=== PATIENT | female | born 1975 | race Caucasian/White ===

== ENCOUNTER 2020-12-16 01:37 | Emergency (ER) | payer OTHER ==
[~2020-12-16] VITALS: Ht 154.9 cm; Wt 70.8 kg
[~2020-12-16 01:37] MED LIST: ALBU90OI INH; ALPR1; Amitriptyline H25 MG PO; Aspirin EC81 MG PO; DULO60 PO; GABA300 PO; HYDSUL200 PO; Hydrochlorothia25 MG PO; K-Dur20 MEQ PO; MONT10T PO; PRED1 PO; TIROSINT112 MCG PO; TORS10 PO; VERAPAMIL ER120 MG PO
[2020-12-16] MEDS ORDERED: PANT40 PO (02:23)
[2020-12-16] MEDS ORDERED: KCL 20 MEQ20 MEQ/100 IV (02:25)
[2020-12-16] MEDS ORDERED: FLUC100 PO (02:26)
[2020-12-16] MEDS ORDERED: ZYRTEC10 M2 PO (02:26)
[2020-12-16] MEDS ORDERED: INOSITOL650 MG PO (02:27)
[2020-12-16] MEDS ORDERED: HYDSUL200 PO (02:27)
[2020-12-16] MEDS ORDERED: VITAMIN D5000 UNIT PO (02:28)
[2020-12-16] MEDS ORDERED: LITH300C PO ×2 (02:30→02:31)
[2020-12-16] MEDS ORDERED: SUMA25 (02:32)
[2020-12-16] MEDS ORDERED: BACL10 PO (02:33)
[2020-12-16] MEDS ORDERED: PROM25 PO (02:33)
[2020-12-16] MEDS ORDERED: DICY20 PO (02:34)
[2020-12-16 02:56] LABS: BASOPHILS ABSOLUTE AUTO 0.06 K/mm3 (0.00-0.23); BASOPHILS PERCENT AUTO 1 % (0-2); EOSINOPHILS ABSOLUTE AUTO 0.01 K/mm3 (0.00-0.68); EOSINOPHILS PERCENT AUTO 0 % (0-6); Hematocrit 43.1 % (33.0-51.0); Hemoglobin 13.9 g/dL (11.5-16.0); IMMATURE GRAN ABSOLUTE AUTO 0.02 K/mm3 (0.00-0.10); IMMATURE GRAN PERCENT AUTO 0 % (0-1); LYMPHOCYTES ABSOLUTE AUTO 1.43 K/mm3 (0.84-5.20); LYMPHOCYTES PERCENT AUTO 13 % (21-46); MONOCYTES ABSOLUTE AUTO 0.49 K/mm3 (0.16-1.47); MONOCYTES PERCENT AUTO 5 % (4-13); Mean Corpuscular HGB 30.8 pg (26.0-34.0); Mean Corpuscular HGB Conc 32.3 g/dL (31.5-36.5); Mean Corpuscular Volume 95 fL (80-100); Mean Platelet Volume 9.5 fL (9.1-12.4); NEUTROPHILS ABSOLUTE AUTO 8.86 K/mm3 (1.96-9.15); NEUTROPHILS PERCENT AUTO 81 % (41-73); Platelet Count 358 K/mm3 (150-400); RDW Coefficient Variation 12.7 % (11.7-14.2); Red Blood Cell Count 4.52 M/mm3 (3.80-5.20); White Blood Cell Count 10.87 K/mm3 (4.00-11.30)
[2020-12-16 03:10] LABS: Magnesium, Blood 2.1 mg/dL (1.6-2.4); Troponin I <0.015 ng/mL (0.000-0.040)
[2020-12-16 03:11] LABS: Alanine Aminotransfer (ALT/SGP 30 U/L (12-78); Albumin, Blood 4.2 g/dL (3.4-5.0); Albumin/Globulin Ratio 1.3 (0.8-1.8); Alk Phos 88 U/L (50-136); Anion Gap 5 mmol/L (6-16); Aspartate Aminotrans (AST/SGOT 19 U/L (12-37); Bilirubin, Total 0.5 mg/dL (0.1-1.0); Blood Urea Nitrogen 18 mg/dL (8-24); Bun/Creatinine Ratio 19.4 (12.0-20.0); CO2, Blood 28 mmol/L (21-32); Calcium, Blood 9.8 mg/dL (8.5-10.1); Chloride, Blood 109 mmol/L (98-108); Creatinine, Blood 0.93 mg/dL (0.40-1.00); Globulin, Blood 3.3 g/dL (2.2-4.0); Glomerular Filtration Rate >60 (60-); Glucose, Blood 108 mg/dL (70-99); Potassium, Blood 3.4 mmol/L (3.5-5.5); Sodium, Blood 142 mmol/L (136-145); Total Protein, Blood 7.5 g/dL (6.4-8.2)
[2020-12-16] MEDS ORDERED: Capsaicin60 GM TOP (04:23)
== END 2020-12-16 04:40 | disposition home or self-care (01) ==
LOC: ER 01:37
PROVIDERS: Emergency Medicine
DX: E87.6 Hypokalemia (principal); R11.2 Nausea with vomiting, unspecified; I10 Essential (primary) hypertension; Z87.891 Personal history of nicotine dependence; Z79.899 Other long term (current) drug therapy
CPT/HCPCS: 36415; 80053; 83690; 83735; 84484; 85025; 93005; 93010; 96374; 96375; 99284-25; A9270; J1200; J1630; J7120

== ENCOUNTER 2021-05-05 17:46 | Observation (INO) | payer OTHER ==
[~2021-05-05] VITALS: Ht 154.9 cm; Wt 65.0 kg
[~2021-05-05 17:46] MED LIST changes: -ALPR1; -Amitriptyline H25 MG PO; +Capsaicin60 GM TOP; -DULO60 PO; -GABA300 PO; -Hydrochlorothia25 MG PO; +INOSITOL650 MG PO; +KCL 20 MEQ20 MEQ/100 IV; -MONT10T PO; +SUMA25; -TIROSINT112 MCG PO; -TORS10 PO; -VERAPAMIL ER120 MG PO; +VITAMIN D5000 UNIT PO; +ZYRTEC10 M2 PO
[2021-05-05 18:30] LABS: BASOPHILS ABSOLUTE AUTO 0.07 K/mm3 (0.00-0.23); BASOPHILS PERCENT AUTO 0 % (0-2); EOSINOPHILS ABSOLUTE AUTO 0.14 K/mm3 (0.00-0.68); EOSINOPHILS PERCENT AUTO 1 % (0-6); Hematocrit 44.8 % (33.0-51.0); Hemoglobin 14.8 g/dL (11.5-16.0); IMMATURE GRAN ABSOLUTE AUTO 0.06 K/mm3 (0.00-0.10); IMMATURE GRAN PERCENT AUTO 0 % (0-1); LYMPHOCYTES ABSOLUTE AUTO 2.08 K/mm3 (0.84-5.20); LYMPHOCYTES PERCENT AUTO 12 % (21-46); MONOCYTES ABSOLUTE AUTO 1.02 K/mm3 (0.16-1.47); MONOCYTES PERCENT AUTO 6 % (4-13); Mean Corpuscular HGB 31.8 pg (26.0-34.0); Mean Corpuscular Volume 96 fL (80-100); Mean Platelet Volume 9.7 fL (9.1-12.4); NEUTROPHILS ABSOLUTE AUTO 13.73 K/mm3 (1.96-9.15); NEUTROPHILS PERCENT AUTO 80 % (41-73); Platelet Count 397 K/mm3 (150-400); RDW Coefficient Variation 12.5 % (11.7-14.2); RDW Standard Deviation 44.4 fL (35.1-46.3); Red Blood Cell Count 4.66 M/mm3 (3.80-5.20)
[2021-05-05 19:19] LABS: Alanine Aminotransfer (ALT/SGP 237 U/L (12-78); Albumin, Blood 3.7 g/dL (3.4-5.0); Albumin/Globulin Ratio 0.8 (0.8-1.8); Alk Phos 270 U/L (50-136); Anion Gap 6 mmol/L (6-16); Aspartate Aminotrans (AST/SGOT 35 U/L (12-37); Bilirubin, Total 0.5 mg/dL (0.1-1.0); Blood Urea Nitrogen 8 mg/dL (8-24); Bun/Creatinine Ratio 8.4 (12.0-20.0); CO2, Blood 25 mmol/L (21-32); Calcium, Blood 9.9 mg/dL (8.5-10.1); Chloride, Blood 106 mmol/L (98-108); Creatinine, Blood 0.96 mg/dL (0.40-1.00); Globulin, Blood 4.5 g/dL (2.2-4.0); Glomerular Filtration Rate >60 (60-); Glucose, Blood 101 mg/dL (70-99); Potassium, Blood 3.1 mmol/L (3.5-5.5); Sodium, Blood 137 mmol/L (136-145); Total Protein, Blood 8.2 g/dL (6.4-8.2)
[2021-05-05] MEDS ORDERED: LITH300ER PO (19:41)
[2021-05-05] MEDS ORDERED: PROM25 PO (19:42)
[2021-05-05] MEDS ORDERED: Lithium Carbon150 MG PO (19:42)
[2021-05-05] MEDS ORDERED: TORS10 PO (19:43)
[2021-05-05] MEDS ORDERED: AMIT75 PO (19:45)
[2021-05-05] MEDS ORDERED: BACL10 PO (19:46)
[2021-05-05] MEDS ORDERED: GABA300 PO (19:48)
[2021-05-05] MEDS ORDERED: DICY20 PO (19:48)
[2021-05-05] MEDS ORDERED: LEVOTHYROXINE200 MCG PO (19:49)
[2021-05-05] MEDS ORDERED: VERAPAMIL ER120 MG PO (19:49)
[2021-05-05] MEDS ORDERED: DULO30 PO (19:52)
[2021-05-05] MEDS ORDERED: ALPR1 PO (19:52)
[2021-05-05] MEDS ORDERED: FLUC200 PO (19:54)
[2021-05-05] MEDS ORDERED: PRAZ2 PO (19:54)
[2021-05-05] MEDS ORDERED: PROG100 PO (19:55)
[2021-05-05] MEDS ORDERED: Hydrochlorothia25 MG PO (19:56)
[2021-05-05] MEDS ORDERED: MONT10T PO (19:56)
[2021-05-05] MEDS ORDERED: PANT40 PO (19:56)
[2021-05-05 21:16] LABS: SARS-Cov-2 (COVID-19) PCR, MMC NEGATIVE (NEGATIVE)
--- NOTE | 2021-05-06 03:08 | NUR ---
PATIENT ARRIVE ON THE UNIT AT 2030 ALERT AND ORIENTED X 4 AND ABLE TO MAKE NEEDS KNOWN. ASSESSMENT WAS DONE LUNG SOUNDS ARE CLEAR, ALL PULSES ARE PALPABLE. PATIENT C/O OF PAIN 8/10 FENTANYL WAS GIVEN OER ORDER. PATIENT WAS NAUSEATED AND VOMITING AND GIVEN ZOFRAN PER ORDER. PATIENT SHOWS NO SIGN OF DISTRESS. WILL CONTINUE TO MONITOR.
--- NOTE | 2021-05-06 06:07 | NUR ---
PATIENT HAS NOT BEEN TO SLEEP AND HAS VOMITED X 3. PATIENT C/O RUQ PAIN AND WAS MEDICATED X 2 WITH FENTANYL AND ZOFRAN. PATIENT WAS GIVEN IV ABT UNASYN X 2 AND PATIENT TOLERATED IT WELL. PATIENT HAS BEEN NPO FOR SURGERY TO REMOVE GALLBLADDER. BLOOD CONSENT WAS SIGNED AND WITNESSED. WILL CONTINUE TO MONITOR.
--- NOTE | 2021-05-06 11:26 | NUR ---
PT ARRIVED FROM FLOOR. WANTS IV OUT OF R AC. REPLACED WITHA 18G IN L UPPER ARM. LEFT OTHER IV IN FOR SURGERY IT STILL WORKS WELL. REPORT TO ADÁN.
--- NOTE | 2021-05-06 14:31 | NUR ---
REPORT TO JOSÉ MIGUEL SEAY.
--- NOTE | 2021-05-06 17:14 | NUR ---
05/06/21 1714 Merle Desai OF SHIFT REPORT OBTAINE FROM JOSÉ MIGUEL HILLS. CHANGE OF SHIFT COUNTS CORRECT.
--- NOTE | 2021-05-07 06:50 | NUR ---
PATIENT'S RUTH DRAIN SITE WAS LEAKING AND THE DRESSING WAS REINFORCED. THE PATIENT HAD NASEA AND WAS MEDICATED PER ORDERS. THE PATIENT WAS MEDICATED FOR PAIN X 2. VITALS WERE STABLE AND THERE IS NO SIGN OF DISTRESS. WILL CONTINUE TO MONITOR.
--- NOTE | 2021-05-07 09:27 | NUR ---
RUTH DRAIN DR AGRAWAL REMOVED RUTH DRAIN THIS MORNING. GAUZE/TEGADERM DRESSING APPLIED. GAUZE DRESSINGS TO LAP SITES X3 REMOVED; STERI STRIPS IN PLACE, WNL.
--- NOTE | 2021-05-07 16:47 | NUR ---
SHIFT SUMMARY PT IS A/O X4, IND IN ROOM. TOLERATING FULL LIQUIDS, VOIDING, HAD BM, AND PASSING FLATUS. RUTH REMOVED THIS AM BY DR AGRAWAL. LAP SITES X3 WITH STERI STRIPS. RUTH SITE WITH GAUZE AND TEGADERM. PT DENIES NAUSEA TODAY. PLAN IS FOR IV ABX OVERNIGHT.
[2021-05-08] MEDS ORDERED: HYDR1TAB94 PO (09:25)
--- NOTE | 2021-05-08 10:35 | NUR ---
DISCHARGE PT A/O X4, IND IN ROOM, TOLERATING PO INTAKE, VOIDING, AND HAVING BM'S. DRESSING TO RLQ QUADRANT CHANGED PRIOR TO DC. INSTRUCTIONS REVIEWED WITH PT; REPORTS UNDERSTANDING. SCRIPT FOR NORCO SENT WITH PT. EXTRA DRESSING SUPPLIES ALSO SENT WITH PT. PT DC'D AT 1035 WITH . PERSONAL BELONGINGS SENT HOME WELL DC INSTRUCTIONS. PT PROVIDED WITH WHEELCHAIR RIDE TO VEHICLE.
== END 2021-05-08 10:15 | disposition home or self-care (01) ==
LOC: ER 17:46 → SURS 17:47
PROVIDERS: Emergency Medicine; Physician Assistant; ADMIT Surgery
PROC: 0FT44ZZ Resection of Gallbladder, Percutaneous Endoscopic Approach (ICD-10-PCS; principal; 2021-05-06 11:00)
PROC: BF10YZZ Fluoroscopy of Bile Ducts using Other Contrast (ICD-10-PCS; principal; 2021-05-06 11:00)
DX: K80.12 Calculus of gallbladder with acute and chronic cholecystitis without obstruction (principal); I12.9 Hypertensive chronic kidney disease with stage 1 through stage 4 chronic kidney disease, or unspecified chronic kidney disease; N18.30 Chronic kidney disease, stage 3 unspecified; J45.909 Unspecified asthma, uncomplicated; F17.210 Nicotine dependence, cigarettes, uncomplicated; Z20.822 Contact with and (suspected) exposure to COVID-19
CPT/HCPCS: 36415; 74300; 76705; 80053; 81025; 83690; 85025; 96365; 96375; 96376; 99285-25; A9270; C1729; C1894; G0378; J0295; J1100; J1885; J2270; J2370; J2405; J2550; J2704; J2710; J3010; J7030; J7120; U0004

== ENCOUNTER → 2021-05-31 | Outpatient (CLI) | payer OTHER ==
[~2021-05-31] MED LIST changes: +ALPR1 PO; +AMIT75 PO; +BACL10 PO; +DICY20 PO; +DULO30 PO; +FLUC200 PO; +GABA300 PO; +HYDR1TAB94 PO; +Hydrochlorothia25 MG PO; +LEVOTHYROXINE200 MCG PO; +LITH300ER PO; +Lithium Carbon150 MG PO; +MONT10T PO; +PANT40 PO; +PRAZ2 PO; +PROG100 PO; +PROM25 PO; +TORS10 PO; +VERAPAMIL ER120 MG PO
[2021-05-31 18:24] LABS: Appearance, Urine Clear (Clear); Bilirubin, Urine Neg (Neg); Blood, Urine 1+ (Neg); Color, Urine Yellow (P-Yellow); Glucose Qualitative, Urine Neg (Neg); Ketones, Urine Neg (Neg); Leukocyte Esterase, Urine 1+ (Neg); Nitrite, Urine Neg (Neg); Protein, Urine Neg (Neg); Urobilinogen, Urine NORM (Normal)
[2021-05-31 18:48] LABS: Bacteria Many /hpf; Red Blood Cells, Urine 0-2 /hpf (0-2); Squamous Epithelial Cells Many /hpf (Few)
== END | disposition home or self-care (01) ==
LOC: LAB SHORT 11:30 → LAB 11:30
PROVIDERS: Internal Medicine
DX: N18.31 Chronic kidney disease, stage 3a (principal)
CPT/HCPCS: 81001